=== PATIENT | female | born 1955 | race Caucasian/White ===

== ENCOUNTER 2016-06-23 08:52 | Emergency (ER) | payer SELFPAY ==
[~2016-06-23] VITALS: Ht 160 cm; Wt 58.0 kg
[~2016-06-23 08:52] MED LIST: PENI500T PO; TYLETAB34 PO
[2016-06-23 09:01] VITALS: BP 137/78; PULSE 70; RESP 16; TEMP 97.9; O2SAT 100
[2016-06-23 09:22] VITALS: BP 159/80; PULSE 73; RESP 18; O2SAT 98
[2016-06-23 09:44] VITALS: BP 159/80; PULSE 66; RESP 16; O2SAT 98
[2016-06-23] MEDS ORDERED: ONDANSETRON HCL 4 MG/2 ML VIAL IVP ONE (09:45)
[2016-06-23] MEDS ORDERED: ALUMINUM/MAGNESIUM/SIMETH 30 ML CUP PO ONE (09:45)
[2016-06-23] MEDS ORDERED: PANTOPRAZOLE SODIUM 40 MG VIAL IVP ONE (09:45)
--- NOTE | 2016-06-23 09:52 | PD ---
HPI Chief Complaint: Abdominal Pain Time Seen by Provider: 09:33 Travel History International Travel<30 days: No Contact w/Intl Traveler<30days: No Traveled to known affect area: No History of Present Illness HPI 60-year-old female complains of coughing congestion, abdominal pain, nausea vomiting, black tarry stool and knee pain. Patient states that the symptoms started a few weeks ago. Patient states that the abdominal pain is burning pain in cramping pain mostly around epigastric area. Patient denies any pain radiation. Patient states that she has intermittent nausea vomiting since last night. Patient states the abdominal pain is worse since last night. Patient states that she has intermittent dry cough for the past few weeks. Patient denies any chest pain or shortness of breath. Patient states that she had intermittent bilateral knee pain for the past few weeks. Patient denies any recent injury. Patient has been taking ibab-mzu-hayxuut Tums for abdominal pain. Patient states that she drinks alcohol occasionally. 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 Reported Meds & Prescriptions Reported Meds & Active Scripts Active Phenergan (Promethazine HCl) 25 Mg Tab 25 Mg PO Q6H PRN Carafate (Sucralfate) 1 Gm Tab 1 Gm PO QID On empty stomach Protonix (Pantoprazole Sodium) 20 Mg Tab 20 Mg PO DAILY Tylenol-Codeine #3 (Acetaminophen-Codeine) 300-30 mg Tab 1 Tab PO Q6H PRN Penicillin V Potassium 500 Mg Tab 500 Mg PO Q8H Review of Systems General / Constitutional: No: Fever Eyes: No: Visual changes HENT: No: Headaches Cardiovascular: No: Chest Pain or Discomfort Respiratory: Positive: Cough, No: Shortness of Breath Gastrointestinal: Positive: Nausea, Vomiting, Abdominal Pain, Hematochezia Genitourinary: No: Dysuria Musculoskeletal: Positive: Pain Skin: No Rash Neurologic: No: Weakness Psychiatric: No: Depression Endocrine: No: Polydipsia Hematologic/Lymphatic: No: Easy Bruising Physical Exam Narrative GENERAL: Well-nourished, well-developed patient. SKIN: Warm and dry. HEAD: Normocephalic. EYES: No scleral icterus. No injection or drainage. NECK: Supple, trachea midline. No JVD or lymphadenopathy. CARDIOVASCULAR: Regular rate and rhythm without murmurs, gallops, or rubs. RESPIRATORY: Breath sounds equal bilaterally. No accessory muscle use. GASTROINTESTINAL: Abdomen soft, nondistended. Patient has mild tenderness on palpation epigastric area. No rebound tenderness. No mass. Rectal exam Hemoccult negative. MUSCULOSKELETAL: No cyanosis, or edema. Mild diffuse tenderness bilateral knee joint. Full range of motion of the knee joint. Knee joints stable. No effusion noted. BACK: Nontender without obvious deformity. No CVA tenderness. neurologic exam normal. Data Data Last Documented VS Vital Signs Date Time Temp Pulse Resp B/P Pulse Ox O2 Delivery O2 Flow Rate FiO2 06/23/16 09:44 66 16 159/80 98 Room Air 06/23/16 09:01 97.9 Orders Complete Blood Count With Diff (06/23/16 09:42) Comprehensive Metabolic Panel (06/23/16 09:42) Lipase (06/23/16 09:42) Urinalysis - C+S If Indicated (06/23/16 09:42) Iv Access Insert/Monitor (06/23/16 09:42) Ecg Monitoring (06/23/16 09:42) Oximetry (06/23/16 09:42) Ondansetron Inj (Zofran Inj) (06/23/16 09:45) Pantoprazole Inj (Protonix Inj) (06/23/16 09:45) Chest, Single Ap (06/23/16 09:42) Al-Mag Hy-Si 40-40-4 Mg/Ml Liq (Mag-Al P (06/23/16 09:45) Lidocaine 2% Viscous (Xylocaine 2% Visco (06/23/16 09:53) Labs Laboratory Tests Test 06/23/16 06/23/16 06/23/16 09:46 10:12 10:30 White Blood Count 7.3 TH/MM3 Red Blood Count 4.39 MIL/MM3 Hemoglobin 12.5 GM/DL Hematocrit 37.2 % Mean Corpuscular Volume 84.9 FL Mean Corpuscular Hemoglobin 28.5 PG Mean Corpuscular Hemoglobin 33.5 % Concent Red Cell Distribution Width 12.2 % Platelet Count 276 TH/MM3 Mean Platelet Volume 8.5 FL Neutrophils (%) (Auto) 63.2 % Lymphocytes (%) (Auto) 22.3 % Monocytes (%) (Auto) 7.2 % Eosinophils (%) (Auto) 6.6 % Basophils (%) (Auto) 0.7 % Neutrophils # (Auto) 4.6 TH/MM3 Lymphocytes # (Auto) 1.6 TH/MM3 Monocytes # (Auto) 0.5 TH/MM3 Eosinophils # (Auto) 0.5 TH/MM3 Basophils # (Auto) 0.1 TH/MM3 CBC Comment DIFF FINAL Differential Comment Sodium Level 142 MEQ/L Potassium Level 4.1 MEQ/L Chloride Level 107 MEQ/L Carbon Dioxide Level 24.2 MEQ/L Anion Gap 11 MEQ/L Blood Urea Nitrogen 16 MG/DL Creatinine 1.10 MG/DL Estimat Glomerular Filtration 51 ML/MIN Rate Random Glucose 88 MG/DL Calcium Level 9.0 MG/DL Total Bilirubin 0.8 MG/DL Aspartate Amino Transf 22 U/L (AST/SGOT) Alanine Aminotransferase 25 U/L (ALT/SGPT) Alkaline Phosphatase 66 U/L Total Protein 8.0 GM/DL Albumin 4.1 GM/DL Lipase 219 U/L Urine Collection Type CLEAN CATCH Urine Color YELLOW Urine Turbidity CLEAR Urine pH 5.5 Urine Specific [place] 1.019 Urine Protein NEG mg/dL Urine Glucose (UA) NEG mg/dL Urine Ketones TRACE mg/dL Urine Occult Blood SMALL Urine Nitrite NEG Urine Bilirubin NEG Urine Leukocyte Esterase NEG Urine RBC 4-9 /hpf Urine Squamous Epithelial 0-5 /hpf Cells Urine Amorphous Sediment FEW Microscopic Urinalysis Comment CULT NOT INDICATED Urine Collection Time 1030 MDM Medical Decision Making Medical Screen Exam Complete: Yes Emergency Medical Condition: Yes Interpretation(s) 10:53 AM. Chest x-ray shows no acute consolidation. CBC within normal limit. CMP within normal limit. Creatinine 1.10. UA shows few RBC. Differential Diagnosis Differential diagnosis including viral syndrome, gastritis, PUD, pancreatitis, cholecystitis, colitis, UTI, pyelonephritis, nephrolithiasis, arthritis, fracture, dislocation. Narrative Course 60-year-old female with multiple complaints including nausea vomiting abdominal pain knee pain coughing congestion. HemaPrompt Point of Care Internal Pos. & Neg. Controls: Passed Fecal Specimen Occult Blood: Negative Diagnosis Primary Impression: Gastritis Qualified Code: K29.70 - Gastritis without bleeding, unspecified chronicity, unspecified gastritis type Additional Impressions: Gastroenteritis Arthralgia of knee Qualified Code: M25.561 - Arthralgia of both knees Patient Instructions: General Instructions Additional Instructions: Take medications as directed. Follow with orthopedist, GI specialist, personal physician. Return if worse. Med/Other Pt SpecificInfo: Prescription(s) given Scripts Tramadol (Ultram)50 Mg Tab50 Mg PO Q6H PRN (PAIN) #20 TAB Prov:Wan Cifuentes MD 06/23/16 Promethazine (Phenergan)25 Mg Tab25 Mg PO Q6H PRN (Nausea/Vomiting) #15 TAB Ref 0 Prov:Wan Cifuentes MD 06/23/16 Sucralfate (Carafate)1 Gm Tab1 Gm PO QID #120 TAB On empty stomach Prov:Wan Cifuentes MD 06/23/16 Pantoprazole (Protonix)20 Mg Tab20 Mg PO DAILY #30 TAB Prov:Wan Cifuentes MD 06/23/16 Disposition: 01 DISCHARGE HOME Condition: Stable Wan Cifuentes MD Jun 23, 2016 09:52
[2016-06-23] MEDS ORDERED: LIDOCAINE VISCOUS 2% SOLN 15 ML UDC ONE (09:53)
[2016-06-23 10:02] LABS: AUTOMATED NEUTROPHIL # 4.6 TH/MM3 (1.8-7.7); BASOPHIL # 0.1 TH/MM3 (0-0.2); BASOPHIL % 0.7 % (0.0-2.0); EOSINOPHIL # 0.5 TH/MM3 (0-0.4); EOSINOPHIL % 6.6 % (0.0-4.0); HEMATOCRIT 37.2 % (35.0-46.0); HEMO FLAGS DIFF FINAL; LYMPH % 22.3 % (9.0-44.0); LYMPHOCYTE # 1.6 TH/MM3 (1.0-4.8); MEAN CELL VOLUME 84.9 FL (80.0-100.0); MEAN CORPUSCULAR HEMOGLOBIN 28.5 PG (27.0-34.0); MEAN CORPUSCULAR HGB CONC 33.5 % (32.0-36.0); MONO % 7.2 % (0.0-8.0); NEUT % 63.2 % (16.0-70.0); PLATELET COUNT 276 TH/MM3 (150-450); RED BLOOD COUNT 4.39 MIL/MM3 (4.00-5.30); RED CELL DISTRIBUTION WIDTH 12.2 % (11.6-17.2); WHITE BLOOD COUNT 7.3 TH/MM3 (4.0-11.0)
--- NOTE | 2016-06-23 10:13 | RADHPO ---
EXAM DATE/TIME: 06/23/2016 09:49 [facility] COMPARISON: CHEST SINGLE AP, February 08, 2013, 8:21. INDICATIONS : Short of breath, cough, chest pains MEDICAL HISTORY : None. SURGICAL HISTORY : None. ENCOUNTER: Initial ACUITY: 3 days PAIN SCORE: 4/10 LOCATION: Bilateral chest FINDINGS: A single view of the chest demonstrates the lungs to be symmetrically aerated without evidence of mas s, infiltrate or effusion. The cardiomediastinal contours are unremarkable. Osseous structures are intact. CONCLUSION: Normal examination. Prabhakar Velez MD on June 23, 2016 at 10:11 Board Certified Radiologist. This report was verified electronically.
[2016-06-23 10:32] LABS: CHLORIDE 107 MEQ/L (98-107); POTASSIUM 4.1 MEQ/L (3.5-5.1); SODIUM (NA) 142 MEQ/L (136-145)
[2016-06-23 10:36] LABS: ANION GAP 11 MEQ/L (5-15); BICARBONATE 24.2 MEQ/L (21.0-32.0); BLOOD UREA NITROGEN 16 MG/DL (7-18)
[2016-06-23 10:39] LABS: ALT (GPT) 25 U/L (10-53); AST (GOT) 22 U/L (15-37); GLOMERULAR FILTRATION RATE 51 ML/MIN (>89)
[2016-06-23 10:40] LABS: BLOOD, URINE SMALL (NEG); GLUCOSE,URINE NEG (NEG); KETONE, URINE TRACE mg/dL (NEG); NITRITE,URINE NEG (NEG); PH, URINE 5.5 (5.0-8.5)
[2016-06-23 10:41] LABS: TOTAL BILIRUBIN ADULT 0.8 MG/DL (0.2-1.0)
[2016-06-23 10:42] LABS: ALKALINE PHOSPHATASE 66 U/L (45-117)
[2016-06-23 10:45] LABS: METHOD OF COLLECTION CLEAN CATCH; URINE COLOR YELLOW (YELLW/STRAW)
[2016-06-23 10:46] LABS: COMMENT (UR) CULT NOT INDICATED; CULTURE IF INDICATED CULT NOT INDICATED; SQUAMOUS EPITHELIAL CELL URINE 0-5 /hpf (0-5)
[2016-06-23] MEDS ORDERED: PANT20 PO (10:58)
[2016-06-23] MEDS ORDERED: CARA1TAB6 PO (10:58)
[2016-06-23] MEDS ORDERED: PROM25TA5 PO (10:58)
[2016-06-23] MEDS ORDERED: ULTR50TA5 PO (11:01)
== END 2016-06-23 11:36 | disposition home or self-care (01) ==
LOC: PHED 08:52
DX: K29.70 Gastritis, unspecified, without bleeding (principal); K52.9 Noninfective gastroenteritis and colitis, unspecified; M25.561 Pain in right knee; M25.562 Pain in left knee; R10.9 Unspecified abdominal pain; R05 Cough; R11.2 Nausea with vomiting, unspecified; R19.5 Other fecal abnormalities; Z72.0 Tobacco use
CPT/HCPCS: 71010; 80053; 81001; 83690; 85025; 96374; 96375; 99284; C9113; J2405

== ENCOUNTER 2016-06-29 06:38 | Emergency (ER) | payer SELFPAY ==
[~2016-06-29] VITALS: Ht 160 cm; Wt 57.0 kg
[~2016-06-29 06:38] MED LIST changes: +CARA1TAB6 PO; +PANT20 PO; +PROM25TA5 PO; +ULTR50TA5 PO
[2016-06-29 06:42] VITALS: BP 169/85; PULSE 64; RESP 15; TEMP 97.4; O2SAT 98
[2016-06-29] MEDS ORDERED: ACETAMINOPHEN/CODEINE 300 MG/30 MG TAB PO ONE (07:30)
--- NOTE | 2016-06-29 07:58 | PD ---
HPI Chief Complaint: Pain: Acute or Chronic Time Seen by Provider: 07:04 Travel History International Travel<30 days: No Contact w/Intl Traveler<30days: No Traveled to known affect area: No History of Present Illness HPI The 60 year-old woman who presents to the emergency department stating that she' s been having worsening right leg pain ongoing for several weeks. She saw her "disability doctor" who told her that she thought she had infected blood clots. She reports the leg was more swollen at that time and her varicose veins are prominent. She is placed on penicillin and given tramadol for pain. She reports a penicillin is been helping some she still is worsening severe pain in the leg. She describes the pain is in the thigh shooting down from the hip and into the calf as well. 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 SKIN: Warm and dry. CARDIOVASCULAR: Warm and well perfused. RESPIRATORY: Normal rate and effort. MUSCULOSKELETAL: Normal appearance the right lower extremity. She does have some varicose veins. There is no obvious edema or asymmetry. There is no significant calf tenderness. There is some thigh tenderness. There is no evidence of peripheral arterial disease. Good pulses. Good capillary refill. No obvious ligamentous instability of the knee. Some crepitus with passive range of motion of the knee. NEUROLOGICAL: Awake and alert. No gross deficits. Data Data Last Documented VS Vital Signs Date Time Temp Pulse Resp B/P Pulse Ox O2 Delivery O2 Flow Rate FiO2 06/29/16 06:42 97.4 64 15 169/85 98 Room Air Orders Us Leg Venous Doppler (06/29/16 ) Acetamin-Codeine 300-30 Mg (Tylenol-Code (06/29/16 07:30) MDM Medical Decision Making Medical Screen Exam Complete: Yes Emergency Medical Condition: Yes Interpretation(s) My review Doppler ultrasound: Negative. Differential Diagnosis DVT, venous insufficiency, superficial thrombophlebitis, arthritis, other Narrative Course Medical decision making INITIAL: 60 year-old woman of leg pain. Looks fine. She states it was more swollen before the doctor worse she thought she had blood clots. I don't think that she likely has a DVT. She may been referring to some superficial phlebitis. She is a varicose veins in that leg. She had multiple controlled prescriptions prescriptions from multiple providers in the past year. Defer any further controlled substances. Ultrasound rule out DVT. Outpatient follow- up. Diagnosis Primary Impression: Right leg pain Additional Instructions: Use [id number] analgesics as needed for leg pain. Follow-up with your primary doctor in the next 3-5 days if symptoms persist. Return to the emergency room for any worsening pain, numbness tingling or weakness, or any other new or worsening symptoms. Med/Other Pt SpecificInfo: No Change to Meds Disposition: 01 DISCHARGE HOME Condition: Stable Prabhakar Rasmussen MD Jun 29, 2016 07:58
[2016-06-29 08:30] VITALS: RESP 20
[2016-06-29] MEDS ORDERED: NAPR500 PO (09:14)
--- NOTE | 2016-06-29 09:24 | RADRPT ---
EXAM DATE/TIME: 06/29/2016 08:08 [facility] COMPARISON: No previous studies available for comparison. INDICATIONS : Right leg pain. MEDICAL HISTORY : Right leg pain. SURGICAL HISTORY : None. ENCOUNTER: Initial ACUITY: 1 week PAIN SCORE: 3/10 LOCATION: Right leg. TECHNIQUE: Venous ultrasound of the leg was performed from the inguinal ligament to the proximal calf. Real-holly e, color Doppler and spectral tracing, compression and augmentation techniques were used. FINDINGS: There is normal compressibility of the deep venous system from the inguinal region to the proximal ca lf. No echogenic clot is seen in the lumen of the common femoral, femoral, popliteal, and posterior tibial veins. There is a normal response of the venous system to proximal and distal augmentation an d respiration. CONCLUSION: No DVT is identified in the right lower extremity. Krystian Parker MD on June 29, 2016 at 9:22 Board Certified Radiologist. This report was verified electronically.
== END 2016-06-29 09:43 | disposition home or self-care (01) ==
LOC: NEPE 06:38
DX: M79.604 Pain in right leg (principal)
CPT/HCPCS: 93971

== ENCOUNTER 2016-07-22 09:53 | Emergency (ER) | payer SELFPAY ==
[~2016-07-22] VITALS: Ht 160 cm; Wt 58.0 kg
[~2016-07-22 09:53] MED LIST changes: +NAPR500 PO
[2016-07-22 10:03] VITALS: BP 113/77; PULSE 76; RESP 16; TEMP 98.7; O2SAT 99
[2016-07-22] MEDS ORDERED: PENI500T PO (10:41)
[2016-07-22] MEDS ORDERED: TYLETAB34 PO (10:41)
--- NOTE | 2016-07-22 10:45 | PD ---
HPI Chief Complaint: Oral / Dental Pain or Problem Time Seen by Provider: 10:36 Travel History International Travel<30 days: No Contact w/Intl Traveler<30days: No Traveled to known affect area: No History of Present Illness HPI She complains of dental pain. He says that she bit into a sandwich and broke part of her tooth off. She then says that she called the dentist who told her to come here and get antibiotics. She wants something for pain. Duration is 2 hours PFSH Past Medical History Anxiety: Yes Depression: Yes Diminished Hearing: No GERD: Yes Headaches: Yes Medical other: Yes (chronic pain) Immunizations Current: Yes Migraines: Yes Tetanus Vaccination: < 5 Years Influenza Vaccination: No ?: Not Menopausal: Yes Past Surgical History Surgical History: No Previous Surgery Social History Alcohol Use: Yes (states beer on occasion) Tobacco Use: Yes (1 pack of cig a month) Substance Use: Yes (> 10 years) Allergies-Medications (Allergen,Severity, Reaction): Coded Allergies: *MDRO Multi-Drug Resistant Organism (Verified Adverse Reaction, Unknown, ) 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 Reported Meds & Prescriptions Reported Meds & Active Scripts Active Protonix (Pantoprazole Sodium) 20 Mg Tab 20 Mg PO DAILY Review of Systems General / Constitutional: No: Fever Eyes: No: Diploplia, Visual changes HENT: Positive: Dental Difficulties, No: Headaches Cardiovascular: No: Chest Pain or Discomfort Respiratory: No: Shortness of Breath Gastrointestinal: No: Abdominal Pain Genitourinary: No: Dysuria Musculoskeletal: No: Pain Skin: No Rash Neurologic: No: Weakness Psychiatric: No: Depression Endocrine: No: Polydipsia Hematologic/Lymphatic: No: Easy Bruising Physical Exam Narrative NECK: Symmetrical appearance, midline trachea. No mass or crepitus. Thyroid without enlargement, tenderness, or mass. SKIN: Inspection shows no rash or ulcers. Palpation shows no induration or nodules. Oral cavity: Poor dentition. Uvula midline. She has several carious looking teeth Data Data Last Documented VS Vital Signs Date Time Temp Pulse Resp B/P Pulse Ox O2 Delivery O2 Flow Rate FiO2 07/22/16 10:10 75 16 07/22/16 10:03 98.7 113/77 99 MDM Medical Decision Making Medical Screen Exam Complete: Yes Emergency Medical Condition: Yes Medical Record Reviewed: Yes Differential Diagnosis Dental cavity, gingivitis, pharyngitis Narrative Course I have reviewed the patient's electronic medical record. Patient was here twice in May 2016 for dental pain Doesn't seem to be much acute or emergent happening here. She really just broke off her tooth this morning and don't see why she would need antibiotics for that and I explained that to her. She is insistent on it. I order some penicillin and a few Tylenol with Codeine. Recommend she follow up with the dentist for her dental issues rather than repeated emergency room visits. Diagnosis Primary Impression: Pain, dental Additional Instructions: The patient was warned about potential sedation for the medications they will receive on prescription. Follow up with dentist would be the best recommendation rather than repeated emergency room visits for dental issues Med/Other Pt SpecificInfo: Prescription(s) given Scripts Acetaminophen-Codeine (Tylenol-Codeine #3)300-30 mg Tab1 Tab PO Q6HR PRN (PAIN) #15 TAB Ref 0 Prov:Parvez Morejon MD 07/22/16 Penicillin V Potassium 500 Mg [id number] Mg PO Q8H #20 TAB Ref 0 Prov:Parvez Morejon MD 07/22/16 Disposition: 01 DISCHARGE HOME Condition: Stable Parvez Morejon MD Jul 22, 2016 10:45
== END 2016-07-22 11:05 | disposition home or self-care (01) ==
LOC: PHED 09:53
DX: K08.89 Other specified disorders of teeth and supporting structures (principal); Z72.0 Tobacco use; Z87.19 Personal history of other diseases of the digestive system; Z87.39 Personal history of other diseases of the musculoskeletal system and connective tissue; Z86.59 Personal history of other mental and behavioral disorders
CPT/HCPCS: 99282

== ENCOUNTER 2016-10-29 06:35 | Emergency (ER) | payer SELFPAY ==
[~2016-10-29] VITALS: Ht 160 cm; Wt 57.0 kg
[~2016-10-29 06:35] MED LIST changes: -CARA1TAB6 PO; -NAPR500 PO; -PROM25TA5 PO; -ULTR50TA5 PO
[2016-10-29 06:39] VITALS: BP 117/76; PULSE 72; RESP 16; TEMP 97.7; O2SAT 98
[2016-10-29 06:45] VITALS: RESP 18
[2016-10-29] MEDS ORDERED: ASPI81CH7 CHEW (06:51)
--- NOTE | 2016-10-29 06:57 | PD ---
HPI Chief Complaint: Oral / Dental Pain or Problem Time Seen by Provider: 06:56 Travel History International Travel<30 days: No Contact w/Intl Traveler<30days: No Traveled to known affect area: No History of Present Illness HPI The patient is a 61-year-old female who has multiple visits for dental infections in the emergency department. She states that she was given "happy mouth" mouthwash and this worked well for her. This mouth wash is made in [place] but she has been able to find it locally in our pharmacies. It is sold [id number] on the Internet. She has multiple areas of broken down teeth and dental pain. She does have a history of cocaine abuse. 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 Her vital signs are normal. SKIN: Focused skin assessment warm/dry. HEAD: Normocephalic. EYES: No scleral icterus. No injection or drainage. NECK: Supple, trachea midline. No JVD or lymphadenopathy. CARDIOVASCULAR: Regular rate and rhythm without murmurs, gallops, or rubs. RESPIRATORY: Breath sounds equal bilaterally. No accessory muscle use. GASTROINTESTINAL: Abdomen soft, non-tender, nondistended. MUSCULOSKELETAL: No cyanosis, or edema. BACK: Nontender without obvious deformity. No CVA tenderness. DENTAL: She does have several cracked teeth and several broken down teeth and multiple areas of tenderness but no drainable abscess is present. Data Data Last Documented VS Vital Signs Date Time Temp Pulse Resp B/P Pulse Ox O2 Delivery O2 Flow Rate FiO2 10/29/16 06:45 18 10/29/16 06:39 97.7 72 98 MDM Medical Decision Making Medical Screen Exam Complete: Yes Emergency Medical Condition: Yes Medical Record Reviewed: Yes Differential Diagnosis Gingivitis, dental infections, Smooth's anginahighly unlikely, drainable dental abscesses Narrative Course The patient does not have any drainable dental abscesses. She has numerous tender areas in her teeth that are dental infections and gingivitis. Diagnosis Primary Impression: Gingivitis Additional Instructions: As we discussed, you need to see a dentist. It is likely that a number of the teeth have to be removed. I see that you can order happy mouth online if you can't find it at the pharmacy. Med/Other Pt SpecificInfo: Prescription(s) given Scripts Ibuprofen 600 Mg [id number] Mg PO TID #44 TAB Ref 0 Prov:Venkat Phillips MD 10/29/16 Amoxicillin 500 Mg [id number] Mg PO TID #30 TAB Ref 0 Prov:Venkat Phillips MD 10/29/16 Disposition: 01 DISCHARGE HOME Condition: Stable Venkat Phillips MD October 29, 2016 06:57
[2016-10-29] MEDS ORDERED: IBUP-232 PO (07:08)
[2016-10-29] MEDS ORDERED: AMOX500T PO (07:08)
== END 2016-10-29 07:22 | disposition home or self-care (01) ==
LOC: PHED 06:35
DX: K05.10 Chronic gingivitis, plaque induced (principal); F41.9 Anxiety disorder, unspecified; F32.9 Major depressive disorder, single episode, unspecified; K21.9 Gastro-esophageal reflux disease without esophagitis; F17.210 Nicotine dependence, cigarettes, uncomplicated
CPT/HCPCS: 99283

== ENCOUNTER 2016-11-27 11:41 | Emergency (ER) | payer SELFPAY ==
[~2016-11-27] VITALS: Ht 160 cm; Wt 57.4 kg
[~2016-11-27 11:41] MED LIST changes: +AMOX500T PO; +ASPI81CH7 CHEW; +IBUP-232 PO; -PANT20 PO; -PENI500T PO; -TYLETAB34 PO
[2016-11-27 11:45] VITALS: BP 121/76; PULSE 78; RESP 16; TEMP 98.2; O2SAT 100
[2016-11-27] MEDS ORDERED: INDOMETHACIN 50 MG CAP PO ONE (12:00)
[2016-11-27] MEDS ORDERED: ACETAMINOPHEN/HYDROcodone 325 MG/5 MG TAB PO ONE (12:00)
--- NOTE | 2016-11-27 12:09 | PD ---
HPI Chief Complaint: Musculoskeletal Complaint Time Seen by Provider: 11:55 Travel History International Travel<30 days: No Contact w/Intl Traveler<30days: No Traveled to known affect area: No History of Present Illness HPI The patient is a 61-year-old female who presents emergency department for right knee pain. Patient is a 2 to three-day history of right knee pain and mild swelling. The patient cannot recall any direct trauma or known injuries to the right knee, but does state the right knee is somewhat swollen when compared to left. The patient is able to ambulate, however, in place with a limp secondary to the right knee pain. The pain is moderate, worse with movement, slightly alleviated at rest. She states the knee feels slightly warm but there is no erythema over the affected area she denies any fever. The patient denies any history of gout or pseudogout, however, has had swelling of the right knee in the past with unknown pathology. She denies any weakness or numbness of the right lower extremity and denies any history diabetes. PFSH Past Medical History Anxiety: Yes Depression: Yes Diminished Hearing: No GERD: Yes Headaches: Yes Immunizations Current: Yes Migraines: Yes Influenza Vaccination: No ?: Not Menopausal: Yes Past Surgical History Oral Surgery: Yes (multiple teeth pulled) Social History Alcohol Use: Yes (states beer on occasion) Tobacco Use: No (quit "1 week ago") Substance Use: Yes (> 10 years) Allergies-Medications (Allergen,Severity, Reaction): Coded Allergies: *MDRO Multi-Drug Resistant Organism (Verified Adverse Reaction, Unknown, ) 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 Reported Meds & Prescriptions Reported Meds & Active Scripts Active Review of Systems Except as stated in HPI: all other systems reviewed are Neg General / Constitutional: No: Fever Gastrointestinal: No: Nausea, Vomiting Musculoskeletal: Positive: Limited ROM, Edema, Pain Skin: No Rash Neurologic: No: Paresthesia, Sensory Disturbance Physical Exam Narrative GENERAL: Awake, alert, pleasant 61-year-old female who appears her stated age and is in no acute respiratory distress. SKIN: Focused skin assessment warm/dry. HEAD: Atraumatic. Normocephalic. EYES: No injection or drainage. ENT: No nasal bleeding or discharge. Mucous membranes pink and moist. NECK: Trachea midline. No JVD. MUSCULOSKELETAL: The right knee has mild edema, slightly flexed at 20. Patella is midline. Minimal calor on exam but no erythema noted. The patient is able flex the knee to 90. No tenderness upon palpation. Small effusion noted. Patient is able fully plantarflex and dorsiflex. Dorsalis pedal pulse on the right is 2+. No lymphadenitis of the right lower extremity noted. NEUROLOGICAL: Awake and alert. No obvious cranial nerve deficits. Motor grossly within normal limits. Normal speech. PSYCHIATRIC: Appropriate mood and affect; insight and judgment normal. Data Data Last Documented VS Vital Signs Date Time Temp Pulse Resp B/P Pulse Ox O2 Delivery O2 Flow Rate FiO2 11/27/16 11:45 98.2 78 16 121/76 100 Orders Knee, Ltd (1 Or 2vws) (11/27/16 ) Acetamin-Hydrocod 325-5 Mg ([place] 5-325 (11/27/16 12:00) Indomethacin (Indocin) (11/27/16 12:15) [facility] Medical Decision Making Medical Screen Exam Complete: Yes Emergency Medical Condition: Yes Medical Record Reviewed: Yes Interpretation(s) Last Impressions Knee X-Ray 11/27/16 0000 Signed Impressions: Service Date/Time: Friday, November 27, 2016 12:11 - CONCLUSION: 1. Negative examination. Zeke Johnson MD Differential Diagnosis Differential diagnosis includes arthropathy, gout, pseudogout, knee effusion, osteoarthritis, knee strain, knee sprain, septic knee, internal derangement. Narrative Course X-ray of the right knee was obtained. The patient was administered indomethacin and [place] for pain. X-rays unremarkable, no acute findings noted. The patient had an Nagi wrap applied, will be discharged home on indomethacin and [place]. She is advised to follow-up with her primary physician. Return if symptoms worsen or progress. Diagnosis Primary Impression: Arthropathy of right knee Patient Instructions: General Instructions Additional Instructions: Medications as directed. Follow-up with her primary physician. Return if symptoms worsen or progress. Activity as tolerated. Nagi wrap as directed. Med/Other Pt SpecificInfo: Prescription(s) given Scripts Ranitidine (Zantac 150 Maximum Strength)150 Mg [id number] Mg PO BID 10 Days Prov:Kasi Castaneda MD 11/27/16 Hydrocodone-Acetaminophen ([place])5-325 mg Tab1 Tab PO Q6H PRN (PAIN) #20 TAB Ref 0 Prov:Kasi Castaneda MD 11/27/16 Indomethacin 50 Mg Cap50 Mg PO TID 5 Days Ref 0 Take with food, milk, or antacids to decrease stomach adverse effects. Prov:Kasi Castaneda MD 11/27/16 Disposition: 01 DISCHARGE HOME Condition: Stable Kasi Castaneda MD Nov 27, 2016 12:09
[2016-11-27] MEDS ORDERED: INDOMETHACIN 25 MG CAP PO ONE (12:15)
--- NOTE | 2016-11-27 13:32 | RADRPT ---
EXAM DATE/TIME: 11/27/2016 12:11 [facility] COMPARISON: CHEST SINGLE AP, June 23, 2016, 9:49. INDICATIONS : Right knee pain and swelling with no known injury MEDICAL HISTORY : infection following vericose vein surgery SURGICAL HISTORY : Vericose vein surgery ENCOUNTER: Initial ACUITY: 3 days PAIN SCORE: 10/10 LOCATION: Right knee FINDINGS: Osseous structures are intact. No air is seen within the soft tissues. No retained foreign body is ev ident. CONCLUSION: 1. Negative examination. Zeke Johnson MD on November 27, 2016 at 13:28 Board Certified Radiologist. This report was verified electronically.
[2016-11-27] MEDS ORDERED: INDO50CA PO (13:46)
[2016-11-27] MEDS ORDERED: ZANTTAB PO (13:46)
[2016-11-27] MEDS ORDERED: NORC5TAB PO (13:46)
== END 2016-11-27 14:00 | disposition home or self-care (01) ==
LOC: PHEFT 11:41
DX: M12.9 Arthropathy, unspecified (principal); M25.561 Pain in right knee; Z87.891 Personal history of nicotine dependence
CPT/HCPCS: 73560; 99284

== ENCOUNTER 2016-12-07 10:40 | Emergency (ER) | payer OTHER ==
[~2016-12-07] VITALS: Ht 160 cm; Wt 57.5 kg
[~2016-12-07 10:40] MED LIST changes: -AMOX500T PO; -ASPI81CH7 CHEW; -IBUP-232 PO; +INDO50CA PO; +NORC5TAB PO; +ZANTTAB PO
[2016-12-07 10:43] VITALS: BP 157/80; PULSE 68; RESP 24; TEMP 97.5; O2SAT 98
--- NOTE | 2016-12-07 11:40 | PD ---
HPI Chief Complaint: Neuro Symptoms/ Deficits Time Seen by Provider: 11:40 Travel History International Travel<30 days: No Contact w/Intl Traveler<30days: No Traveled to known affect area: No History of Present Illness HPI 61 year old female with history of Migraine headaches, depression, anxiety presents to the ED for evaluation of multiple symptoms. Pt reports intermittent RUE numbness, tingling, and weakness over the last several months, but has noticed worsening in the last month. She recalls no injury. No definite pain. Pt also states she has been getting dehydrated lately and feels dizzy at times. She has had no falls. She was seen and evaluated in the ED on November 27 for Right knee pain and swelling. She was prescribed norco and naprosyn and is requesting a refill of norco today. She also has "lumps" in her axilla that are painful at times and changes in her breasts but is not certain what. Patient has not had a mammogram. She states that she recently got approved for disability and "everything is falling apart." She denies any recent illnesses, fever, or chills. No abdominal pain, nausea, vomiting. No chest pain or tightness. No acute focal deficits or weakness. Patient has no other symptoms to report this time. PFSH Past Medical History Hx Anticoagulant Therapy: No Anxiety: Yes Depression: Yes Cardiovascular Problems: Yes Chemotherapy: No Diabetes: No Diminished Hearing: No GERD: Yes Headaches: Yes Respiratory: No Immunizations Current: Yes Migraines: Yes Tetanus Vaccination: < 5 Years Influenza Vaccination: No ?: Not Menopausal: Yes Past Surgical History Hysterectomy: No Oral Surgery: Yes (multiple teeth pulled) Social History Alcohol Use: Yes (states beer on occasion) Tobacco Use: No (quit "1 week ago") Substance Use: No Allergies-Medications (Allergen,Severity, Reaction): Coded Allergies: *MDRO Multi-Drug Resistant Organism (Verified Adverse Reaction, Unknown, ) 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 Reported Meds & Prescriptions Reported Meds & Active Scripts Active Tizanidine (Tizanidine HCl) 2 Mg Tab 2 Mg PO HS Zantac 150 Maximum Strength (Ranitidine HCl) 150 Mg Tab 150 Mg PO BID 10 Days Review of Systems Except as stated in HPI: all other systems reviewed are Neg Physical Exam Narrative GENERAL: Well-nourished female patient, sitting up in bed, in no acute distress. SKIN: Focused skin assessment warm/dry. HEAD: Atraumatic. Normocephalic. EYES: Pupils equal and round. No scleral icterus. No injection or drainage. ENT: No nasal bleeding or discharge. Mucous membranes pink and moist. NECK: Trachea midline. No JVD. No cervical spine tenderness. There is tenderness to palpation laterally to the right of the distal cervical spine near the scapula. CARDIOVASCULAR: Regular rate and rhythm. No murmur appreciated. RESPIRATORY: No accessory muscle use. Diminished bases, otherwise clear to auscultation. Breath sounds equal bilaterally. GASTROINTESTINAL: Abdomen soft, non-tender, nondistended. Hepatic and splenic margins not palpable. MUSCULOSKELETAL: No obvious deformities. No clubbing. No cyanosis. No edema. Questionable slight weakness in ophthalmic asst strength right upper extremity. Kylee sign is negative. No pronator drip. No hyperreflexia. She reported tenderness with palpation of the axilla, greater on the right than the left. No abscess, induration, or erythema. NEUROLOGICAL: Awake and alert. No obvious cranial nerve deficits. Motor grossly within normal limits. Normal speech. Data Data Last Documented VS Vital Signs Date Time Temp Pulse Resp B/P Pulse Ox O2 Delivery O2 Flow Rate FiO2 12/07/16 11:36 74 18 98 Room Air 12/07/16 10:43 97.5 157/80 Orders Electrocardiogram (12/07/16 11:48) Sodium Chloride 0.9% Flush (Ns Flush) (12/07/16 12:00) Sodium Chlor 0.9% 1000 Ml Inj (Ns 1000 M (12/07/16 11:48) Dexamethasone Inj (Decadron Inj) (12/07/16 12:15) [facility] Medical Decision Making Medical Screen Exam Complete: Yes Emergency Medical Condition: Yes Medical Record Reviewed: Yes Differential Diagnosis Radiculopathy versus neuropathy versus arthritis versus vertigo versus syncope versus near syncope versus electrolyte abnormality. Narrative Course 61-year-old female presents to the emergency department with multiple symptoms to be evaluated, however none of them are acute. Patient appears without distress. Her vital signs are stable. Urine no focal deficits on examination. I discussed the patient my attending physician Dr. Cardozo who also assessed the patient and spent a lengthy amount of time going over her reported symptoms. Please refer to his documentation. After assessment, it is determined that there is no need at this time for further emergent workup. Patient will be discharged to follow-up with a primary care provider. She agrees to return immediately with any acute worsening symptoms. Diagnosis Primary Impression: Radiculopathy Qualified Code: M54.12 - Cervical radiculopathy Additional Impressions: Dizziness Arthralgia of knee Qualified Code: M25.561 - Arthralgia of right knee Referrals: Primary Care Physician Patient Instructions: Arthralgia (ED), Cervical Radiculopathy (ED), General Instructions Additional Instructions: Rest, Ice, Compress with brace or Nagi bandage, and Elevate RLE Follow up with a primary care provider Return immediately to the emergency department with any acute worsening symptoms Med/Other Pt SpecificInfo: Prescription(s) given Scripts Tizanidine 2 Mg Tab2 Mg PO HS #20 TAB Ref 0 Prov:Zeke Cardozo MD 12/07/16 Disposition: 01 DISCHARGE HOME Condition: Stable Mindy Gregory Dec 07, 2016 11:40
[2016-12-07] MEDS ORDERED: SODIUM CHLOR 0.9% 1000 ML INJ 1,000 ML IV ONE (11:48)
[2016-12-07] MEDS ORDERED: SODIUM CHLORIDE 0.9% FLUSH 10 ML FLUSH IVF PRN (12:00)
[2016-12-07] MEDS ORDERED: TIZA2TAB PO (12:09)
--- NOTE | 2016-12-07 12:10 | PD ---
Data Data Last Documented VS Vital Signs Date Time Temp Pulse Resp B/P Pulse Ox O2 Delivery O2 Flow Rate FiO2 12/07/16 11:36 74 18 98 Room Air 12/07/16 10:43 97.5 157/80 Orders Electrocardiogram (12/07/16 11:48) Sodium Chloride 0.9% Flush (Ns Flush) (12/07/16 12:00) Sodium Chlor 0.9% 1000 Ml Inj (Ns 1000 M (12/07/16 11:48) Dexamethasone Inj (Decadron Inj) (12/07/16 12:15) MDM Medical Record Reviewed: Yes Supervised Visit with BRITTANY: Yes Narrative Course I, Dr. Cardozo, have reviewed the advance practice practitioner's documentation and am in agreement, met with the patient face to face, made the diagnosis, and the medical decision making was done by me. *My assessment and Findings: She has chronic radiculopathic symptoms involving the right upper extremity with no acute neurologic deficit/acute appreciable motor weakness. She also reports varicosities of the right lower extremity. 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 Additionally she notes recent approval for disability so she will not have to work as much. In any case we had a discussion about risks and alternatives to chronic opioid therapy. She was agreeable with our discussion which was concluded by a determination to avoid opioids. We followed by discussing outpatient follow-up plans including the [facility] clinic for her chronic complaints. We also discussed potential interventions for the radiculopathic right upper extremity pain with muscle spasms in the right back. Patient was receptive to the discussion in general and overall quite appreciative. Diagnosis Primary Impression: Radiculopathy Qualified Code: M54.12 - Cervical radiculopathy Additional Impressions: Arthritis Dizziness Referrals: [facility] call for appointment Additional Instruction: You have a choice when it comes to health care, and we are glad that you chose [facility]. Hopefully, we have met your expectations on today's visit. You are welcome to return to [facility] at any time, as we are committed to meeting the health care needs of our community. Med/Other Pt SpecificInfo: Prescription(s) given Scripts Tizanidine 2 Mg Tab2 Mg PO HS #20 TAB Ref 0 Prov:Zeke Cardozo MD 12/07/16 Disposition: 01 DISCHARGE HOME Condition: Stable Zeke Cardozo MD Dec 07, 2016 12:10
[2016-12-07] MEDS ORDERED: DEXAMETHASONE SOD PHOS 4 MG/ML VIAL IM ONE (12:15)
== END 2016-12-07 12:47 | disposition home or self-care (01) ==
LOC: NEPC 10:40
DX: M54.12 Radiculopathy, cervical region (principal); R42 Dizziness and giddiness; M25.561 Pain in right knee; M19.90 Unspecified osteoarthritis, unspecified site; M62.830 Muscle spasm of back; R22.2 Localized swelling, mass and lump, trunk; Z86.69 Personal history of other diseases of the nervous system and sense organs; Z86.59 Personal history of other mental and behavioral disorders; Z86.79 Personal history of other diseases of the circulatory system; Z87.19 Personal history of other diseases of the digestive system; Z87.891 Personal history of nicotine dependence
CPT/HCPCS: 96372; 99284; J1100

== ENCOUNTER 2016-12-15 07:11 | Emergency (ER) | payer OTHER ==
[~2016-12-15] VITALS: Ht 160 cm; Wt 55.0 kg
[~2016-12-15 07:11] MED LIST changes: -INDO50CA PO; -NORC5TAB PO; +TIZA2TAB PO
[2016-12-15 07:14] VITALS: BP 133/87; PULSE 71; RESP 20; TEMP 98.1; O2SAT 100
[2016-12-15] MEDS ORDERED: NORC5TAB PO (07:35)
[2016-12-15] MEDS ORDERED: IBUP-232 PO (07:35)
--- NOTE | 2016-12-15 07:36 | PD ---
HPI Chief Complaint: Musculoskeletal Complaint Time Seen by Provider: 07:23 Travel History International Travel<30 days: No Contact w/Intl Traveler<30days: No Traveled to known affect area: No History of Present Illness HPI The patient is a 61-year-old female who presents emergency department for right knee pain. The patient states she was evaluated in the emergency department November 2016 for right knee pain and had an x-ray which was unremarkable. 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 The knee pain is worse with kneeling, going from a kneeling to standing position, and certain types of movement. It is slightly better at rest. The patient was taken an anti-inflammatory and pain medication which did alleviate her pain, however, she ran out of her medications and does not have an appointment with her primary physician until December 30. She denies any acute trauma to the knee, does note some intermittent swelling of the knee, but denies any redness over the affected area. She denies any company fever. Symptoms are moderate, worse with movement, slightly alleviated at rest. PFSH Past Medical History Hx Anticoagulant Therapy: No Anxiety: Yes Depression: Yes Cardiovascular Problems: Yes Chemotherapy: No Diabetes: No Diminished Hearing: No GERD: Yes Headaches: Yes Respiratory: No Immunizations Current: Yes Migraines: Yes Menopausal: Yes Past Surgical History Hysterectomy: No Oral Surgery: Yes (multiple teeth pulled) Social History Alcohol Use: Yes (states beer on occasion) Tobacco Use: No (quit "1 week ago") Substance Use: No Allergies-Medications (Allergen,Severity, Reaction): Coded Allergies: *MDRO Multi-Drug Resistant Organism (Verified Adverse Reaction, Unknown, ) 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 Reported Meds & Prescriptions Reported Meds & Active Scripts Active Tizanidine (Tizanidine HCl) 2 Mg Tab 2 Mg PO HS Zantac 150 Maximum Strength (Ranitidine HCl) 150 Mg Tab 150 Mg PO BID 10 Days Review of Systems Except as stated in HPI: all other systems reviewed are Neg General / Constitutional: No: Fever Musculoskeletal: Positive: Arthralgias, Pain Skin: No Rash Neurologic: No: Paresthesia, Sensory Disturbance Physical Exam Narrative GENERAL: Awake, alert, nontoxic-appearing 61-year-old female who appears her stated age and is in no acute respiratory distress. SKIN: Focused skin assessment warm/dry. HEAD: Atraumatic. Normocephalic. EYES: Pupils equal and round. No scleral icterus. No injection or drainage. ENT: No nasal bleeding or discharge. Mucous membranes pink and moist. NECK: Trachea midline. No JVD. MUSCULOSKELETAL: No obvious deformities. Inspection of the right knee reveals minimal edema when compared to left. The patient's full range of motion with flexion of the right hip and right knee. She is able fully plantarflex and dorsiflex. Patella is midline. Minimal effusion noted, no deformities noted. Positive distal pulses. NEUROLOGICAL: Awake and alert. No obvious cranial nerve deficits. Motor grossly within normal limits. Normal speech. PSYCHIATRIC: Appropriate mood and affect; insight and judgment normal. Data Data Last Documented VS Vital Signs Date Time Temp Pulse Resp B/P Pulse Ox O2 Delivery O2 Flow Rate FiO2 12/15/16 07:14 98.1 71 20 133/87 100 MDM Medical Decision Making Medical Screen Exam Complete: Yes Emergency Medical Condition: Yes Medical Record Reviewed: Yes Differential Diagnosis Differential diagnosis includes arthritis, meniscal injury, internal derangement , arthropathy, gout, pseudogout. Narrative Course I reviewed the patient's x-ray from November 27, 2016 of the right knee, there were no acute fractures or dislocations noted. The patient has continuing pain, may have arthritis versus meniscal injury. She is advised to apply an Nagi wrap or [id number] knee sleeve to the affected area and a follow-up with her primary physician and orthopedics. I also counseled her regards to possible narcotic addiction, I will refill her ibuprofen and her Radom, only 12 tabs. She is advised to follow-up with her primary physician for continuing pain management. Diagnosis Primary Impression: Arthralgia of knee Qualified Code: M25.561 - Arthralgia of right knee Patient Instructions: General Instructions Additional Instructions: [id number]-[id number] knee sleeve and or Nagi wrap as needed. Follow-up with her primary physician and/or an orthopedic surgeon. Activity as tolerated. Elevate , ice, and rest as needed. Med/Other Pt SpecificInfo: Prescription(s) given Scripts Hydrocodone-Acetaminophen (Radom)5-325 mg Tab1 Tab PO Q6H PRN (PAIN) #12 TAB Ref 0 Prov:Kasi Castaneda MD 12/15/16 Ibuprofen 600 Mg Tvs232 Mg PO Q6H PRN (Pain/Inflammation) #20 TAB Ref 0 Prov:Kasi Castaneda MD 12/15/16 Disposition: 01 DISCHARGE HOME Condition: Stable Kasi Castaneda MD Dec 15, 2016 07:36
== END 2016-12-15 07:49 | disposition home or self-care (01) ==
LOC: PHED 07:11
DX: M25.561 Pain in right knee (principal); Z86.79 Personal history of other diseases of the circulatory system; Z87.19 Personal history of other diseases of the digestive system; Z86.69 Personal history of other diseases of the nervous system and sense organs; Z86.59 Personal history of other mental and behavioral disorders; Z87.891 Personal history of nicotine dependence
CPT/HCPCS: 99283

== ENCOUNTER 2017-02-05 09:43 | Emergency (ER) | payer OTHER ==
[~2017-02-05] VITALS: Ht 160 cm; Wt 55.0 kg
[~2017-02-05 09:43] MED LIST changes: +IBUP-232 PO; +NORC5TAB PO
[2017-02-05 09:50] VITALS: BP 130/78; PULSE 77; RESP 16; TEMP 98.3; O2SAT 99
[2017-02-05] MEDS ORDERED: ASPI1TAB93 PO (10:46)
[2017-02-05] MEDS ORDERED: NORC5TAB PO (11:07)
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
[2017-02-05] MEDS ORDERED: oxyCODONE/ACETAMINOPHEN 5 MG/325 MG TAB PO ONE (11:15)
[2017-02-05 11:49] VITALS: RESP 16
== END 2017-02-05 11:51 | disposition home or self-care (01) ==
LOC: PHED 09:43
DX: S70.12XA Contusion of left thigh, initial encounter (principal); W23.0XXA Caught, crushed, jammed, or pinched between moving objects, initial encounter
CPT/HCPCS: 99283

== ENCOUNTER 2017-03-08 12:11 | Emergency (ER) | payer OTHER ==
[~2017-03-08] VITALS: Ht 160 cm; Wt 55.0 kg
[~2017-03-08 12:11] MED LIST changes: +ASPI1TAB93 PO; -IBUP-232 PO; -TIZA2TAB PO; -ZANTTAB PO
[2017-03-08 12:26] VITALS: BP 143/61; PULSE 72; RESP 16; TEMP 98.6; O2SAT 100
[2017-03-08] MEDS ORDERED: SSD1CRE TOPICAL (13:00)
[2017-03-08] MEDS ORDERED: ACETAMINOPHEN/HYDROcodone 325 MG/5 MG TAB PO ONE (13:00)
[2017-03-08] MEDS ORDERED: SILVER SULFADIAZINE 1% CR 50 GM JAR TOPICAL ONE (13:00)
[2017-03-08] MEDS ORDERED: IBUP-232 PO (13:00)
[2017-03-08] MEDS ORDERED: TYLETAB34 PO (13:00)
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
== END 2017-03-08 13:52 | disposition home or self-care (01) ==
LOC: PHEFT 12:11
DX: T23.202A Burn of second degree of left hand, unspecified site, initial encounter (principal); Z86.59 Personal history of other mental and behavioral disorders; Z86.79 Personal history of other diseases of the circulatory system; Z87.19 Personal history of other diseases of the digestive system; Z86.69 Personal history of other diseases of the nervous system and sense organs; Z87.891 Personal history of nicotine dependence; X12.XXXA Contact with other hot fluids, initial encounter
CPT/HCPCS: 16000

== ENCOUNTER 2017-03-11 08:49 | Emergency (ER) | payer OTHER ==
[~2017-03-11] VITALS: Ht 160 cm; Wt 55.5 kg
[~2017-03-11 08:49] MED LIST changes: +IBUP-232 PO; +SSD1CRE TOPICAL; +TYLETAB34 PO
[2017-03-11 08:59] VITALS: BP 139/77; PULSE 78; RESP 18; TEMP 97.7; O2SAT 97
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
== END 2017-03-11 09:27 | disposition home or self-care (01) ==
LOC: PHED 08:49
DX: T23.022A Burn of unspecified degree of single left finger (nail) except thumb, initial encounter (principal); X12.XXXA Contact with other hot fluids, initial encounter
CPT/HCPCS: 99281

== ENCOUNTER 2017-03-21 07:50 | Emergency (ER) | payer OTHER ==
[~2017-03-21] VITALS: Ht 160 cm; Wt 53.7 kg
[~2017-03-21 07:50] MED LIST changes: -NORC5TAB PO
[2017-03-21 07:54] VITALS: BP 133/70; PULSE 94; RESP 16; TEMP 98; O2SAT 98
[2017-03-21] MEDS ORDERED: HYDR-3533 PO (08:24)
--- NOTE | 2017-03-21 08:25 | PD ---
HPI Chief Complaint: Musculoskeletal Complaint Time Seen by Provider: 08:02 Travel History International Travel<30 days: No Contact w/Intl Traveler<30days: No Traveled to known affect area: No History of Present Illness HPI 61 yo F c/o R knee pain x 1 day. similar pain noticed intermittently previously , diagnosed once as gout. no fever. no traumatic injury. R knee pain constant. worse with ambulation. motrin/tylenol not helpful. elevation helpful. PFSH Past Medical History Hx Anticoagulant Therapy: No Arthritis: Yes (GOUT) Anxiety: Yes Depression: Yes Cardiovascular Problems: Yes Chemotherapy: No Diabetes: No Diminished Hearing: No Gastrointestinal Disorders: Yes (states "has tumor in abd area") GERD: Yes Headaches: Yes Respiratory: No Immunizations Current: Yes Migraines: Yes ?: Not Menopausal: Yes Past Surgical History Hysterectomy: No Oral Surgery: Yes (multiple teeth pulled) Social History Alcohol Use: Yes (occas beer) Tobacco Use: No (quit "1 week ago" states smoke 3 cigs to 1/2 ppd) Substance Use: No Allergies-Medications (Allergen,Severity, Reaction): Coded Allergies: *MDRO Multi-Drug Resistant Organism (Verified Adverse Reaction, Unknown, 03/21/17) 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 Reported Meds & Prescriptions Reported Meds & Active Scripts Active Lortab (Hydrocodone-Acetaminophen) 5-325 Mg Tab 1-2 Tab PO Q6H PRN SSD Topical (Silver Sulfadiazine) 1 % Cream 1 Applic TOPICAL DAILY 14 Days Ibuprofen 600 Mg Tab 600 Mg PO Q6H PRN Tylenol-Codeine #3 (Acetaminophen-Codeine) 300-30 mg Tab 1 Tab PO Q4H PRN Reported Excedrin Extra Strength ([place]-Ksxwnqjlbiave-Xycvzbpl) 250 Mg-250 Mg-65 Mg Tab 1 Tab PO DIRECTED PRN Review of Systems General / Constitutional: No: Fever Skin: No Other Physical Exam Narrative GENERAL: SKIN: Warm and dry. CARDIOVASCULAR: Regular rate and rhythm. RESPIRATORY: No accessory muscle use. Clear to auscultation. Breath sounds equal bilaterally. GASTROINTESTINAL: Abdomen soft, non-tender, nondistended. Hepatic and splenic margins not palpable. MUSCULOSKELETAL: Extremities without clubbing, cyanosis, or edema. No obvious deformities. Swelling suprapatellar knee without erythema/induration/warmth. no ballotment of patella. no calf swelling/ttp. NEUROLOGICAL: Awake and alert. No obvious cranial nerve deficits. Motor grossly within normal limits. Five out of 5 muscle strength in the arms and legs. Normal speech. Data Data Last Documented VS Vital Signs Date Time Temp Pulse Resp B/P (MAP) Pulse Ox O2 Delivery O2 Flow Rate FiO2 03/21/17 07:54 98.0 94 16 133/70 (91) 98 VS reviewed Orders Orders Acetamin-Hydrocod 325-5 Mg ([place] 5-325 (03/21/17 08:30) Ed Discharge Order (03/21/17 08:25) MDM Medical Decision Making Medical Screen Exam Complete: Yes Emergency Medical Condition: Yes Differential Diagnosis septic arthritis, hemarthrosis, gout, arthritis Narrative Course No septic arthritis. No hemarthrosis RICE therapy Diagnosis Primary Impression: Arthralgia of knee Qualified Codes: M25.561 - Pain in right knee Additional Impression: Effusion of right knee Referrals: Primary Care Physician 2 days Additional Instructions: REST YOUR RIGHT LEG ICE YOUR RIGHT LEG JUST ABOVE THE KNEE APPLY AN LARRY BANDAGE AROUND AND JUST ABOVE THE KNEE ELEVATE THE RIGHT LEG MUCH TOLERABLE WHILE SLEEPING AND RESTING Med/Other Pt SpecificInfo: Prescription(s) given Scripts Hydrocodone-Acetaminophen (Lortab) 5-325 Mg Tab 1-2 TAB PO Q6H Y for PAIN SCALE 6 TO 10, #20 TAB 0 Refills Prov: Zeke Cardozo MD 03/21/17 Disposition: 01 DISCHARGE HOME Condition: Stable Zeke Cardozo MD Mar 21, 2017 08:25
[2017-03-21] MEDS ORDERED: ACETAMINOPHEN/HYDROcodone 325 MG/5 MG TAB PO ONE (08:30)
== END 2017-03-21 09:04 | disposition home or self-care (01) ==
LOC: PHED 07:50
DX: M25.561 Pain in right knee (principal); M25.461 Effusion, right knee; M10.9 Gout, unspecified
CPT/HCPCS: 99283

== ENCOUNTER 2017-04-08 11:52 | Emergency (ER) | payer OTHER ==
[~2017-04-08] VITALS: Ht 160 cm; Wt 52.2 kg
[~2017-04-08 11:52] MED LIST changes: +HYDR-3533 PO
[2017-04-08 11:57] VITALS: BP 115/71; PULSE 81; RESP 16; TEMP 98.3; O2SAT 99
--- NOTE | 2017-04-08 12:49 | PD ---
HPI Chief Complaint: Oral / Dental Pain or Problem Time Seen by Provider: 12:32 Travel History International Travel<30 days: No Contact w/Intl Traveler<30days: No Traveled to known affect area: No History of Present Illness HPI 61 year female presents to the emergency department complaining of left upper and lower dental pain with gingivitis that has worsened over the last 3 days. States that she saw her dentist Dr. Zhang and he is planning on 'pulling a couple of teeth' April 21 however, he advised her to come to the emergency department for "antibiotics and pain relief". She says that her pain is 9 out of 10 without radiation. Patient has taken qtqj-ksx-pkzjclv Motrin and Tylenol for pain relief without much relief. States that her left cheek is swollen and feels warm when she wakes up but otherwise denies fever, chills, chest pain, shortness of breath, back pain, abdominal pain. She is upset about coming to the emergency department today because she just started a new job yesterday and had to call out. PFSH Past Medical History Hx Anticoagulant Therapy: No Arthritis: Yes (GOUT) Anxiety: Yes Depression: Yes Cardiovascular Problems: Yes Chemotherapy: No Diabetes: No Diminished Hearing: No Gastrointestinal Disorders: Yes (states "has tumor in abd area") GERD: Yes Headaches: Yes Respiratory: No Immunizations Current: Yes Migraines: Yes Tetanus Vaccination: < 5 Years ?: Not Menopausal: Yes Past Surgical History Hysterectomy: No Oral Surgery: Yes (multiple teeth pulled) Social History Alcohol Use: Yes (occas beer) Tobacco Use: No (quit "1 week ago" states smoke 3 cigs to 1/2 ppd) Substance Use: No Allergies-Medications (Allergen,Severity, Reaction): Coded Allergies: *MDRO Multi-Drug Resistant Organism (Verified Adverse Reaction, Unknown, 04/08/17) 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 Reported Meds & Prescriptions Reported Meds & Active Scripts Active Diclofenac Sodium DR (Diclofenac Sodium) 50 Mg Tabdr 50 Mg PO TID 10 Days Penicillin V Potassium 500 Mg Tab 500 Mg PO Q8H 10 Days Magic Mouthwash Pediatric/Adult Liq (Lidocaine/Diphenhydr/Alum/Mg/Simeth) 60 Ml Susp 5 Ml SWISH-SWAL ACHS Each 5mL contains: Diphenydramine 4.5mg, Viscous Lidocaine 2% 10mg, Maalox Advanced Regular Strength 2.7ml Review of Systems Except as stated in HPI: all other systems reviewed are Neg Physical Exam Narrative GENERAL: Thin, well-nourished, multiple medical complaints of pain SKIN: Focused skin assessment warm/dry. HEAD: Atraumatic. Normocephalic. EYES: Pupils equal and round. No scleral icterus. No injection or drainage. ENT: No nasal bleeding or discharge. Mucous membranes pink and moist. Gingiva nonedematous, nonerythematous without exudate. multiple dental caries, poor dentition. NECK: Trachea midline. No JVD. No enlarged lymph nodes however, patient complains of bilateral neck tenderness whenever palpated. No meningismus. CARDIOVASCULAR: Regular rate and rhythm. No murmur appreciated. RESPIRATORY: No accessory muscle use. Clear to auscultation. Breath sounds equal bilaterally. GASTROINTESTINAL: Abdomen soft, nondistended. Diffuse tenderness to light palpation. MUSCULOSKELETAL: No obvious deformities. No clubbing. No cyanosis. No edema. No CVA tenderness. Antalgic gait NEUROLOGICAL: Awake and alert. No obvious cranial nerve deficits. Motor grossly within normal limits. Normal speech. PSYCHIATRIC: Appropriate mood and affect; insight and judgment normal. Data Data Last Documented VS Vital Signs Date Time Temp Pulse Resp B/P (MAP) Pulse Ox O2 Delivery O2 Flow Rate FiO2 04/08/17 11:57 98.3 81 16 115/71 (86) 99 Orders Orders Acetamin-Hydrocod 325-5 Mg ([place] 5-325 (04/08/17 13:00) MDM Medical Decision Making Medical Screen Exam Complete: Yes Emergency Medical Condition: Yes Differential Diagnosis Dental infection versus tooth abscess versus pulpitis Narrative Course 61 year female presents to the emergency department complaining of left upper and lower dental pain that has worsened over the last 3 days. States that she saw her dentist Dr. Zhang and he is planning on pulling a couple of teeth April 21 however, he advised her to come to the emergency department for "antibiotics and pain relief". States that her left cheek is swollen and feels warm when she wakes up but otherwise denies fever, chills, chest pain, shortness of breath, back pain, abdominal pain. Patient has taken over-the- counter Motrin and Tylenol for pain relief. Physical exam demonstrates TTP to entire mouth area, neck, and back. Patient walks with an antalgic gait secondary to knee pain. Poor dentition with tenderness to palpation of the gingiva vehicle and lingual aspect without fluctuance or exudate. Jaw nonedematous nontender to palpation. Vital signs stable Patient has multiple complaints and multiple areas of pain and therefore E narcsio was consulted. Demonstrates prescriptions on March 21, , , March 08, February 05 for hydrocodone or Tylenol 3. Magic mouthwash, diclofenac for pain control. Pen-Vee K for potential infection process Patient should follow-up with pain management, PCP, and dentist. Diagnosis Primary Impression: Dental cavity Additional Impression: Dental infection Referrals: Dentist Additional Instructions: Follow-up with her dentist as scheduled. Use Magic mouthwash for symptom relief. Follow-up with her primary care physician If her pain worsens or persists return to the emergency department Scripts Diclofenac Sodium DR (Diclofenac Sodium DR) 50 Mg Tabdr 50 MG PO TID for 10 Days, #30 TAB 0 Refills Prov: Jerry Chavez MD 04/08/17 Penicillin V Potassium (Penicillin V Potassium) 500 Mg Tab 500 MG PO Q8H for Infection for 10 Days, #30 TAB 0 Refills Prov: Jerry Chavez MD 04/08/17 Bjazvwiepupmxqm-Ltwlpnlas-Hrv-Alum-Simeth Liq (Magic Mouthwash Pediatric/Adult Liq) 60 Ml Susp 5 ML SWISH-SWAL ACHS for Mouth sores, #60 ML 0 Refills Each 5mL contains: Diphenydramine 4.5mg, Viscous Lidocaine 2% 10mg, Maalox Advanced Regular Strength 2.7ml Prov: Jerry Chavez MD 04/08/17 Disposition: 01 DISCHARGE HOME Condition: Stable Tammie Huber Apr 08, 2017 12:49
[2017-04-08] MEDS ORDERED: PENI500T PO (12:50)
[2017-04-08] MEDS ORDERED: MAGICPED SWISH-SWAL (12:50)
[2017-04-08] MEDS ORDERED: ACETAMINOPHEN/HYDROcodone 325 MG/5 MG TAB PO ONE (13:00)
[2017-04-08] MEDS ORDERED: DICL50TA3 PO (13:04)
== END 2017-04-08 13:14 | disposition home or self-care (01) ==
LOC: PHED 11:52
DX: K02.9 Dental caries, unspecified (principal); K04.7 Periapical abscess without sinus; K05.10 Chronic gingivitis, plaque induced; F17.210 Nicotine dependence, cigarettes, uncomplicated
CPT/HCPCS: 99284

== ENCOUNTER 2017-05-22 08:49 | Emergency (ER) | payer OTHER ==
[~2017-05-22] VITALS: Ht 160 cm; Wt 54.0 kg
[~2017-05-22 08:49] MED LIST changes: -ASPI1TAB93 PO; +DICL50TA3 PO; -HYDR-3533 PO; -IBUP-232 PO; +MAGICPED SWISH-SWAL; +PENI500T PO; -SSD1CRE TOPICAL; -TYLETAB34 PO
[2017-05-22 08:51] VITALS: BP 151/76; PULSE 71; RESP 19; TEMP 98.3; O2SAT 100
[2017-05-22] MEDS ORDERED: METH500T3 PO (09:05)
[2017-05-22] MEDS ORDERED: INDO50CA PO (09:05)
[2017-05-22] MEDS ORDERED: HYDR-3516 PO (09:05)
--- NOTE | 2017-05-22 09:15 | PD ---
HPI Chief Complaint: Cold / Flu Symptoms Time Seen by Provider: 09:11 Travel History International Travel<30 days: No Contact w/Intl Traveler<30days: No Traveled to known affect area: No History of Present Illness HPI cough, productive of yellow sputum, onset 2 days ago, no alleviating/ aggravating factors....denies assoc factors of fever/chills/myalgias/cp/watson/ abdpain/back pain chart and rn notes reviewed all:nkda pmhx:gout,gerd,migraine PFSH Past Medical History Hx Anticoagulant Therapy: No Arthritis: Yes (GOUT) Anxiety: Yes Depression: Yes Cardiovascular Problems: Yes Chemotherapy: No Diabetes: No Diminished Hearing: No Gastrointestinal Disorders: Yes (states "has tumor in abd area") GERD: Yes Gout: Yes Headaches: Yes Respiratory: No Immunizations Current: Yes Migraines: Yes Influenza Vaccination: No Menopausal: Yes Past Surgical History Hysterectomy: No Oral Surgery: Yes (multiple teeth pulled) Social History Alcohol Use: Yes (occas beer) Tobacco Use: Yes Substance Use: No Allergies-Medications (Allergen,Severity, Reaction): Coded Allergies: *MDRO Multi-Drug Resistant Organism (Verified Adverse Reaction, Unknown, 05/22/17) 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 Reported Meds & Prescriptions Reported Meds & Active Scripts Active Diclofenac Sodium DR (Diclofenac Sodium) 50 Mg Tabdr 50 Mg PO TID 10 Days Penicillin V Potassium 500 Mg Tab 500 Mg PO Q8H 10 Days Magic Mouthwash Pediatric/Adult Liq (Lidocaine/Diphenhydr/Alum/Mg/Simeth) 60 Ml Susp 5 Ml SWISH-SWAL ACHS Each 5mL contains: Diphenydramine 4.5mg, Viscous Lidocaine 2% 10mg, Maalox Advanced Regular Strength 2.7ml Reported Hydrocodone-Acetaminophen 5-325 mg Tab 1 Tab PO Q4H PRN Methocarbamol 500 Mg Tab 1,000 Mg PO QID Indomethacin 50 Mg Cap 50 Mg PO TID Take with food, milk, or antacids to decrease stomach adverse effects. Review of Systems General / Constitutional: No: Fever Eyes: No: Visual changes HENT: No: Headaches Cardiovascular: No: Chest Pain or Discomfort Respiratory: Positive: Cough, Wheezing Gastrointestinal: No: Abdominal Pain Genitourinary: No: Dysuria Musculoskeletal: No: Pain Skin: No Rash Neurologic: No: Weakness Psychiatric: No: Depression Endocrine: No: Polydipsia Hematologic/Lymphatic: No: Easy Bruising Physical Exam Narrative GENERAL: SKIN: Warm and dry. HEAD: Atraumatic. Normocephalic. EYES: Pupils equal and round. No scleral icterus. No injection or drainage. ENT: No nasal bleeding or discharge. Mucous membranes pink and moist. NECK: Trachea midline. No JVD. CARDIOVASCULAR: Regular rate and rhythm. RESPIRATORY: No accessory muscle use. scattered wheezing.. Breath sounds equal bilaterally. GASTROINTESTINAL: Abdomen soft, non-tender, nondistended. MUSCULOSKELETAL: Extremities without clubbing, cyanosis, or edema. No obvious deformities. NEUROLOGICAL: Awake and alert. No obvious cranial nerve deficits. Motor grossly within normal limits. Five out of 5 muscle strength in the arms and legs. Normal speech. PSYCHIATRIC: Appropriate mood and affect; insight and judgment normal. Data Data Last Documented VS Vital Signs Date Time Temp Pulse Resp B/P (MAP) Pulse Ox O2 Delivery O2 Flow Rate FiO2 05/22/17 09:06 19 05/22/17 08:51 98.3 71 151/76 (101) 100 Room Air Orders Orders Chest, Pa & Lat (05/22/17 09:19) MDM Medical Decision Making Medical Screen Exam Complete: Yes Emergency Medical Condition: Yes Medical Record Reviewed: Yes Differential Diagnosis bronchitis v pna v uri Narrative Course cxr neg for pna/ptx/ at this time, patient will be discharged Diagnosis Primary Impression: acute bronchitis Patient Instructions: Acute Bronchitis (ED), General Instructions Scripts Methylprednisolone Dosepak (Medrol Dosepak) 4 Mg Dspk 4 MG PO DIRECTED, #1 DSPK 0 Refills Per Pharmacist direction Prov: Camacho Benites MD 05/22/17 Albuterol 18 GM Inh (Ventolin Hfa 18 GM Inh) 90 Mcg/Act Aer 1 PUFF INH Q4H Y for SHORTNESS OF BREATH, #1 INHALER 0 Refills Prov: Camacho Benites MD 05/22/17 Azithromycin (Zithromax Z-Mohinder) 250 Mg Dspk 250 MG PO DIRECTED for Infection, #1 DSPK 0 Refills 500 MG (2 tabs) day 1, then 1 tab days 2-5. Prov: Camacho Benites MD 05/22/17 Disposition: 01 DISCHARGE HOME Condition: Stable Camacho Benites MD May 22, 2017 09:15
--- NOTE | 2017-05-22 09:43 | RADRPT ---
EXAM DATE/TIME: 05/22/2017 09:34 [place] COMPARISON: CHEST SINGLE AP, June 23, 2016, 9:49. INDICATIONS : Cough and shortness of breath. MEDICAL HISTORY : None. SURGICAL HISTORY : None. ENCOUNTER: Initial ACUITY: 3 days PAIN SCORE: 6/10 LOCATION: Bilateral chest FINDINGS: PA and lateral views of the chest demonstrate the lungs to be symmetrically aerated without evidence of mass, infiltrate or effusion. The cardiomediastinal contours are unremarkable. Osseous structure s are intact. CONCLUSION: 1. No acute cardiopulmonary disease. Dante Terrell MD on May 22, 2017 at 9:41 Board Certified Radiologist. This report was verified electronically.
[2017-05-22] MEDS ORDERED: VENTAER INH (10:15)
[2017-05-22] MEDS ORDERED: ZITHTAB PO (10:15)
[2017-05-22] MEDS ORDERED: MEDR4PAK PO (10:15)
[2017-05-22 11:18] VITALS: BP 132/77
== END 2017-05-22 11:20 | disposition home or self-care (01) ==
LOC: NEPD 08:49
DX: J20.9 Acute bronchitis, unspecified (principal); K21.9 Gastro-esophageal reflux disease without esophagitis; M10.9 Gout, unspecified; Z72.0 Tobacco use
CPT/HCPCS: 71020; 99284

== ENCOUNTER 2017-09-04 16:02 | Emergency (ER) | payer OTHER ==
[~2017-09-04] VITALS: Ht 160 cm; Wt 51.8 kg
[~2017-09-04 16:02] MED LIST changes: +HYDR-3516 PO; +INDO50CA PO; +MEDR4PAK PO; +METH500T3 PO; +VENTAER INH; +ZITHTAB PO
[2017-09-04 16:05] VITALS: BP 145/85; PULSE 87; RESP 16; TEMP 98.5; O2SAT 98
[2017-09-04] MEDS ORDERED: PENI500T PO (16:55)
[2017-09-04] MEDS ORDERED: MAGICPED SWISH-SWAL (16:55)
[2017-09-04] MEDS ORDERED: DICL50TA3 PO (16:55)
--- NOTE | 2017-09-04 16:55 | PD ---
HPI Chief Complaint: Oral / Dental Pain or Problem Time Seen by Provider: 16:26 Travel History International Travel<30 days: No Contact w/Intl Traveler<30days: No Traveled to known affect area: No History of Present Illness HPI This is a 62-year-old female here with left lower dental pain 3 days. No fever chills. Symptom severity is moderate. No aggravating or alleviating factors. Patient is requesting oxycodone. PFSH Past Medical History Hx Anticoagulant Therapy: No Arthritis: Yes (GOUT) Anxiety: Yes Depression: Yes Cardiovascular Problems: Yes Chemotherapy: No Diabetes: No Diminished Hearing: No Gastrointestinal Disorders: Yes (states "has tumor in abd area") GERD: Yes Gout: Yes Headaches: Yes Respiratory: No Immunizations Current: Yes Migraines: Yes ?: Not Menopausal: Yes Past Surgical History Hysterectomy: No Oral Surgery: Yes (multiple teeth pulled) Social History Alcohol Use: Yes (occas beer) Tobacco Use: Yes Substance Use: No Allergies-Medications (Allergen,Severity, Reaction): Coded Allergies: *MDRO Multi-Drug Resistant Organism (Verified Adverse Reaction, Unknown, ) 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 Reported Meds & Prescriptions Reported Meds & Active Scripts Active Penicillin V Potassium 500 Mg Tab 500 Mg PO Q6H 7 Days Magic Mouthwash Pediatric/Adult Liq (Lidocaine/Diphenhydr/Alum/Mg/Simeth) 60 Ml Susp 5 Ml SWISH-SWAL ACHS Each 5mL contains: Diphenydramine 4.5mg, Viscous Lidocaine 2% 10mg, Maalox Advanced Regular Strength 2.7ml Diclofenac Sodium DR (Diclofenac Sodium) 50 Mg Tabdr 50 Mg PO TID 5 Days Reported Methocarbamol 500 Mg Tab 1,000 Mg PO QID Review of Systems Except as stated in HPI: all other systems reviewed are Neg General / Constitutional: No: Fever Eyes: No: Visual changes HENT: Positive: Dental Difficulties Cardiovascular: No: Chest Pain or Discomfort Respiratory: No: Shortness of Breath Gastrointestinal: No: Abdominal Pain Genitourinary: No: Dysuria Musculoskeletal: No: Pain Skin: No Rash Physical Exam Narrative GENERAL: Alert well-appearing 62-year-old female SKIN: Warm and dry. HEAD: Normocephalic. EYES: No injection or drainage. Ear/nose/throat: +TTP, mild gum swelling, mild erythema of the gums surrounding the lower incisors. Widespread dental decay. No swelling of the floor the mouth. Uvula is midline. Airway is patent. Mucous membranes are moist NECK: Supple, trachea midline. No JVD or lymphadenopathy. CARDIOVASCULAR: Regular rate and rhythm RESPIRATORY: Breath sounds equal bilaterally. No accessory muscle use. Data Data Last Documented VS Vital Signs Date Time Temp Pulse Resp B/P (MAP) Pulse Ox O2 Delivery O2 Flow Rate FiO2 09/04/17 16:05 98.5 87 16 145/85 (105) 98 Orders Orders Ed Discharge Order (09/04/17 16:56) MDM Medical Decision Making Medical Screen Exam Complete: Yes Emergency Medical Condition: Yes Differential Diagnosis Dental abscess, dental caries, periodontal disease Narrative Course This is a 62-year-old female with dental pain and mild gum swelling. She has widespread dental decay. She is nontoxic appearing. She will be prescribed antibiotics and Magic mouthwash. Instructed take Tylenol and ibuprofen for pain. Diagnosis Primary Impression: Dentalgia Referrals: Dentist Additional Instructions: Medication as directed. Follow-up with her dentist Scripts Penicillin V Potassium (Penicillin V Potassium) 500 Mg Tab 500 MG PO Q6H for Infection for 7 Days, #28 TAB 0 Refills Prov: Alize Chapa 09/04/17 Nthglvxnldjgsax-Tokxbftwf-Tdf-Alum-Simeth Liq (Magic Mouthwash Pediatric/Adult Liq) 60 Ml Susp 5 ML SWISH-SWAL ACHS for Mouth sores, #60 ML 0 Refills Each 5mL contains: Diphenydramine 4.5mg, Viscous Lidocaine 2% 10mg, Maalox Advanced Regular Strength 2.7ml Prov: Alize Chapa 09/04/[address] (Diclofenac Sodium DR) 50 Mg Tabdr 50 MG PO TID for 5 Days, #30 TAB 0 Refills Prov: Alize Chapa 09/04/17 Disposition: 01 DISCHARGE HOME Condition: Stable Alize Chapa Sep 04, 2017 16:55
== END 2017-09-04 17:05 | disposition home or self-care (01) ==
LOC: PHEFT 16:02
DX: K08.89 Other specified disorders of teeth and supporting structures (principal); Z72.0 Tobacco use
CPT/HCPCS: 99283

== ENCOUNTER 2017-09-07 07:47 | Emergency (ER) | payer OTHER ==
[~2017-09-07] VITALS: Ht 160 cm; Wt 52.0 kg
[~2017-09-07 07:47] MED LIST changes: -HYDR-3516 PO; -INDO50CA PO; -MEDR4PAK PO; -VENTAER INH; -ZITHTAB PO
[2017-09-07 07:49] VITALS: BP 129/70; PULSE 67; RESP 16; TEMP 97.8; O2SAT 99
[2017-09-07] MEDS ORDERED: CLIN300C5 PO (10:41)
[2017-09-07] MEDS ORDERED: IBUP1TAB7 PO (10:41)
[2017-09-07] MEDS ORDERED: LACTCAP8 PO (10:41)
--- NOTE | 2017-09-07 10:41 | PD ---
HPI Chief Complaint: Oral / Dental Pain or Problem Time Seen by Provider: 09:24 Travel History International Travel<30 days: No Contact w/Intl Traveler<30days: No Traveled to known affect area: No History of Present Illness HPI 62-year-old female presents to emergency room with complaints of recurrent lower tooth pain which has been ongoing for the past 4 days. Patient has been taking penicillin with no relief of symptoms, patient reports that she still has to make an appointment for dentist but will make one for next week. Patient with no fever chills, patient with no other complaints at this time. PFSH Past Medical History Hx Anticoagulant Therapy: No Arthritis: Yes (GOUT) Anxiety: Yes Depression: Yes Cardiovascular Problems: Yes Chemotherapy: No Diabetes: No Diminished Hearing: No Gastrointestinal Disorders: Yes (states "has tumor in abd area") GERD: Yes Gout: Yes Headaches: Yes Respiratory: No Immunizations Current: Yes Migraines: Yes Tetanus Vaccination: < 5 Years Influenza Vaccination: No Menopausal: Yes Past Surgical History Hysterectomy: No Oral Surgery: Yes (multiple teeth pulled) Social History Alcohol Use: Yes (occas beer) Tobacco Use: Yes (1 pk wk) Substance Use: No Allergies-Medications (Allergen,Severity, Reaction): Coded Allergies: *MDRO Multi-Drug Resistant Organism (Verified Adverse Reaction, Unknown, ) 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 Reported Meds & Prescriptions Reported Meds & Active Scripts Active Probiotic (Lactobacillus Acidophilus) 10 Billion Cell Cap 1 Cap PO TIDAC 10 Days Clindamycin (Clindamycin HCl) 300 Mg Cap 300 Mg PO Q6H 10 Days Ibuprofen 800 Mg Tab 800 Mg PO Q8H PRN Penicillin V Potassium 500 Mg Tab 500 Mg PO Q6H 7 Days Magic Mouthwash Pediatric/Adult Liq (Lidocaine/Diphenhydr/Alum/Mg/Simeth) 60 Ml Susp 5 Ml SWISH-SWAL ACHS Each 5mL contains: Diphenydramine 4.5mg, Viscous Lidocaine 2% 10mg, Maalox Advanced Regular Strength 2.7ml Reported Methocarbamol 500 Mg Tab 1,000 Mg PO QID Review of Systems General / Constitutional: No: Fever Eyes: No: Visual changes HENT: Positive: Dental Difficulties, No: Headaches, Vertigo, Sore Throat Cardiovascular: No: Chest Pain or Discomfort Respiratory: No: Shortness of Breath Gastrointestinal: No: Abdominal Pain Genitourinary: No: Dysuria Musculoskeletal: No: Pain Skin: No Rash Neurologic: No: Weakness Psychiatric: No: Depression Endocrine: No: Polydipsia Hematologic/Lymphatic: No: Easy Bruising Physical Exam Narrative GENERAL: No acute distress, nontoxic SKIN: Focused skin assessment warm/dry. HEAD: Atraumatic. Normocephalic. EYES: Pupils equal and round. No scleral icterus. No injection or drainage. ENT: No nasal bleeding or discharge. Mucous membranes pink and moist. Patient with poor dentition, no obvious abscess or swelling, patient with no tongue swelling, no lip swelling, uvula is midline with no swelling, posterior pharynx is open and patent. Patient with no drooling on exam, patient with no airway compromise. Patient with normal speech. NECK: Trachea midline. No JVD. CARDIOVASCULAR: Regular rate and rhythm. No murmur appreciated. RESPIRATORY: No accessory muscle use. Clear to auscultation. Breath sounds equal bilaterally. PSYCHIATRIC: Appropriate mood and affect; insight and judgment normal. Data Data Last Documented VS Vital Signs Date Time Temp Pulse Resp B/P (MAP) Pulse Ox O2 Delivery O2 Flow Rate FiO2 09/07/17 07:49 97.8 67 16 129/70 (89) 99 Orders Orders Clindamycin (Cleocin) (09/07/17 10:45) Ibuprofen (Motrin) (09/07/17 10:45) Ed Discharge Order (09/07/17 10:41) [facility] Medical Decision Making Medical Screen Exam Complete: Yes Emergency Medical Condition: Yes Medical Record Reviewed: Yes Interpretation(s) Vital Signs Date Time Temp Pulse Resp B/P (MAP) Pulse Ox O2 Delivery O2 Flow Rate FiO2 09/07/17 07:49 97.8 67 16 129/70 (89) 99 Differential Diagnosis Gingivitis, dental abscess Narrative Course 62-year-old female with poor condition, results to the emergency room with c/o of dental pain. patient with overall poor dentition and most likely with dental infection. discussed with patient that she will need follow up with dentist as soon as possible, will change antibiotics from penicillin to clindamycin. Discussed need for her to take probiotics with clindamycin to prevent C. difficile. Signs and symptoms of when to return to the emergency room was reviewed with patient in detail. Diagnosis Primary Impression: Pain, dental Additional Instructions: Please stop taking Pen-V-K Please start taking clindamycin, please take a probiotic with your antibiotic Please follow up with a dentist as soon as possible Return to the emergency room if symptoms worsen or progress Return to the emergency room as needed Med/Other Pt SpecificInfo: Prescription(s) given Scripts Lactobacillus Acidophilus (Probiotic) 10 Billion Cell Cap 1 CAP PO TIDAC for Nutritional Supplement for 10 Days, #90 CAP 0 Refills Prov: Sharita England DO 09/07/17 Clindamycin (Clindamycin) 300 Mg Cap 300 MG PO Q6H for Infection for 10 Days, #40 CAP 0 Refills Prov: Sharita England DO 09/07/17 Ibuprofen (Ibuprofen) 800 Mg Tab 800 MG PO Q8H Y for Pain/Inflammation, #60 TAB 0 Refills Prov: Sharita England DO 09/07/17 Disposition: 01 DISCHARGE HOME Condition: Stable Sharita England DO Sep 07, 2017 10:41
[2017-09-07] MEDS ORDERED: IBUPROFEN 800 MG TAB PO ONE (10:45)
[2017-09-07] MEDS ORDERED: CLINDAMYCIN 150 MG CAP PO ONE (10:45)
== END 2017-09-07 11:27 | disposition home or self-care (01) ==
LOC: PHED 07:47
DX: K08.89 Other specified disorders of teeth and supporting structures (principal); M10.9 Gout, unspecified; F41.9 Anxiety disorder, unspecified; F32.9 Major depressive disorder, single episode, unspecified; K21.9 Gastro-esophageal reflux disease without esophagitis; F17.200 Nicotine dependence, unspecified, uncomplicated; Z79.899 Other long term (current) drug therapy
CPT/HCPCS: 99283